=== PATIENT | male | born 1985 | race Caucasian/White ===

== ENCOUNTER 2023-10-28 10:03 | Emergency (ER) | payer MEDICAID ==
[~2023-10-28] VITALS: Ht 175.3 cm; Wt 81.6 kg
[2023-10-28 10:20] VITALS: BP 151/99; PULSE 87; RESP 18; TEMP 97; O2SAT 97
[2023-10-28] MEDS ORDERED: SILV50CR31 TOP (12:17)
[2023-10-28] MEDS ORDERED: CEPH-585 PO (12:17)
[2023-10-28] MEDS ORDERED: HYDR-3965 PO (12:43)
== END 2023-10-28 12:55 | disposition home or self-care (01) ==
LOC: ER 10:04
DX: T22.212A Burn of second degree of left forearm, initial encounter (principal); X08.8XXA Exposure to other specified smoke, fire and flames, initial encounter; Y93.89 Activity, other specified; Y92.89 Other specified places as the place of occurrence of the external cause; Y99.8 Other external cause status
CPT/HCPCS: 99283